=== PATIENT | female | born 1960 | race Caucasian/White ===

== ENCOUNTER 2022-03-18 07:00 | Outpatient (RCR) | payer OTHER, SELFPAY | END 2022-04-07 16:39 | disposition home or self-care (01) | LOC: PT.CARL 07:00 | PROVIDERS: Visit Provider Family Medicine | DX: M54.50 Low back pain, unspecified (principal) | CPT/HCPCS: 97010; 97012; 97014; 97033; 97035; 97110; 97112; 97140; 97163; 97164; 97530; G0283 ==

== ENCOUNTER 2024-03-01 18:30 | Emergency (ER) | payer OTHER, SELFPAY ==
[2024-03-01 18:51] VITALS: BP 193/79; PULSE 76; RESP 16; O2SAT 97; BMI 32.2
--- NOTE | 2024-03-01 19:26 | ED_ITS ---
Discharge Plan Disposition Patient Disposition: Home, Self-Care Referrals Follow up/Referrals: Clifford Conde [Primary Care Provider] - See instructions Activity Restrictions/Add. Instructions Additional Instructions/Restrictions: PleaseAt this time it was felt you are safe to be discharged home. If new or worsening symptoms please do not hesitate to return the emergency department. Use your oxymetazoline 1 spray up each nostril for the next 3 days. If your nose begins to bleed again please blow your nose as hard as you can, sprayed oxymetazoline of the affected side of your nose and squeeze both sides of your nose for 15 minutes continuously and if symptoms persist please return to see me at the emergency department. Clinical Impressions Clinical Impression: Epistaxis Instructions Patient Instructions: DI for Nosebleed Discharge ED Provider: Colby Beltran General Adult HPI General Chief complaint: Epistaxis Stated complaint: nosebleed Time Seen by Provider: 03/01/24 19:16 Mode of Arrival: Ambulatory Source of Information: Patient Limitations: No Limitations Description of Symptoms (Recalled from ER Triage Doc. by RN): Patient reports a nosebleed that started while cooking supper, bled for 20 minutes or so but has now resolved. History of Present Illness HPI narrative: Patient is a 64-year-old female past medical history of intermittent previous nosebleeds who presents emergency department for evaluation of nosebleed. It began spontaneously while she was cooking dinner, predominantly left-sided. Due to persistent symptoms she presents here for continued evaluation. No anticoagulants. No trauma. Related Data Allergies Allergy/AdvReac Type Severity Reaction Status Date / Time No Known Allergies Allergy Verified 03/01/24 19:33 [facility] Disclaimer: The information contained in this section may have been updated after the patient was seen, as this information can be updated by other users. Social History (System 03/05/22 @ 14:52 by Gilson Winston) Smoking Status: Never smoker alcohol intake: never current occupational status: other Travel in the last 8 weeks: None ROS Obtained: Yes Systems reviewed as appropriate & no additional complaints except as documented Physical Exam General General appearance: alert and in no apparent distress Head Head exam: atraumatic and normocephalic Eye Eye exam: Present PERRL and EOMI ENT ENT exam: Present normal oropharynx (No active bleeding posterior oropharynx), mucous membranes moist and other (Dried blood left nostril, no active bleeding.) Neck Neck exam: Present normal inspection Chest Chest inspection: Present normal inspection and symmetric chest wall rise Respiratory Respiratory exam: Present normal lung sounds bilaterally; Absent respiratory distress Cardiovascular Cardiovascular exam: Present regular rate and normal rhythm Abdominal Exam Abdominal exam: Present soft Extremities Exam Extremities exam: Present normal inspection Neurological Exam Neurological exam: Present alert Psychiatric Psychiatric exam: Present normal affect Skin Skin exam: Present warm and dry Medical Decision Making [place] Inquiry Pt receiving controlled substance: No Vital Signs: 03/01/24 18:51 Pulse Rate [Right Brachial] 76 Respiratory Rate 16 Blood Pressure [Right Arm] 193/79 H Blood Pressure Mean [Right Arm] 117 02 Sat by Pulse Oximetry 97 Oxygen Delivery Method Room Air Orders (Tests/Meds): ED MEDICATIONS Discontinued Medications Generic Name Dose Route Start Last Admin Trade Name Freq PRN Reason Stop Dose Admin Oxymetazoline HCl 2 ml 03/01/24 19:23 Oxymetazoline Nasal [place] 0.05% 15ml NS 03/01/24 19:24 ONCE ONE Medical Decision Narrative: In summary patient is a 64-year-old female with past medical history described above who presents emergency department for evaluation of epistaxis. Fortunately it has resolved prior to arrival. Patient will be given oxymetazoline to prevent recurrence and was instructed to take oxymetazoline for the next 3 days and was given return precautions and verbalized understanding. Critical Care Critical Care Time Critical Care Time: No
[2024-03-01] MEDS: OXYMETAZOLINE NASAL SPRAY 0.05% 15ML 2 ML NS (19:34)
[2024-03-01 19:39] VITALS: BP 184/74; PULSE 73; RESP 18; TEMP 36.6; O2SAT 98
== END 2024-03-01 19:48 | disposition home or self-care (01) ==
PROVIDERS: Emergency Provider Emergency Medicine; PCP Family Medicine
DX: R04.0 Epistaxis (principal)
CPT/HCPCS: 99283